=== PATIENT | male | born 1970 | race Two or more races ===

== ENCOUNTER 2017-07-12 18:48 | Emergency (ER) | payer MEDICAID, SELFPAY ==
[2017-07-12 18:54] VITALS: BP 143/76; PULSE 93; RESP 16; TEMP 36.9; O2SAT 95; BMI 38.5
--- NOTE | 2017-07-12 19:12 | HMH.EDSKAF ---
ED Disposition Clinical Impression: Abscess of abdominal wall Cellulitis Qualifiers: Site of cellulitis of trunk: abdominal wall Abscess of skin or subcutaneous tissue Qualifiers: Site of cutaneous abscess: other site Qualified Code(s): L02.818 - Cutaneous abscess of other sites Disposition: Home, Self-Care Condition on Discharge: Good Instructions: Cellulitis, Boil, DI for Skin Abscess Additional Instructions: Epsom salt and warm water soaks ten 20 minutes at a time every few hours while awake. Rx is for Keflex for Bactrim. Takes naproxen for pain. The surgeon of choice on list provided, early next week for further evaluation. Will likely need incision and drainage procedure next week. 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 The time I documented below is in addition to time spent performing reported procedures but includes the following listed in this critical care notation. Medical Decision Making Vital Signs: 07/12/17 18:54 Temperature 98.4 F Temperature Source Oral Pulse Rate [Right Brachial] 93 H Respiratory Rate 16 Blood Pressure [Right Arm] 143/76 Blood Pressure Mean [Right Arm] 98 Blood Pressure Source [Right Arm] Automatic Cuff Blood Pressure Position [Right Arm] Sitting 02 Sat by Pulse Oximetry 95 Oxygen Delivery Method Room Air - Axel Inquiry Pt receiving controlled substance: No Skin/Abscess/FB HPI - General Chief complaint: Skin/Abscess/Foreign Body Stated complaint: Boil right side of groin Time Seen by Provider: 07/12/17 19:18 Mode of Arrival: Ambulatory Source of Information: Patient, Significant Other Limitations: No Limitations Description of Symptoms (Recalled from ER Triage Doc. by RN): PT C/O BOIL IN GROIN AREA - History of Present Illness HPI narrative: Redness and Swelling to the right lower abdominal wall. Onset 4 days ago. No fever or vomiting. Relieving factors: none Exacerbating factors: none Associated symptoms: denies other symptoms Treatments prior to arrival: none - Related Data Previous Rx's Medication Instructions Recorded Naproxen [EC-Naprosyn] 500 mg PO BID PRN #20 tablet. 07/12/17 Sulfamethoxazole/Trimethoprim 1 each PO BID #20 tab 07/12/17 [Bactrim DS tablet] cephALEXin [Keflex 500mg Cap] 500 mg PO QID #40 cap 07/12/17 Allergies Allergy/AdvReac Type Severity Reaction Status Date / Time No Known Allergies Allergy Verified 07/12/17 19:26 [facility] History Medical History: Denies:: Cancer, Diabetes Mellitus Type 1, Diabetes Mellitus Type 2, MRSA Amputation: No Fractures: No - *Social History Smoking Status: Never smoker Alcohol Intake: never - Psychiatric History Expresses thoughts of harming self/others: None Suicide Plan Description: No Plan ROS Obtained: Yes All systems reviewed & no additional complaints Physical Exam - General General appearance: alert, in no apparent distress - Head Head exam: atraumatic, normocephalic, normal inspection - Neck Neck exam: Present: full ROM - Chest Chest inspection: Present: symmetric chest wall rise - Respiratory Respiratory exam: Absent: respiratory distress - Cardiovascular Cardiovascular exam: Present: other (No edema) - Abdominal Exam Abdominal exam: Present: soft, other (Cellulitis to abdominal wall, approximately 10 cm in diameter with no streaks. Centrally indurated consistent with early abscess. No fluctuance. No fo
--- NOTE | 2017-07-12 19:18 | ED_ITS ---
ED Disposition Clinical Impression: Abscess of abdominal wall Cellulitis Qualifiers: Site of cellulitis of trunk: abdominal wall Abscess of skin or subcutaneous tissue Qualifiers: Site of cutaneous abscess: other site Qualified Code(s): L02.818 - Cutaneous abscess of other sites Disposition: Home, Self-Care Condition on Discharge: Good Instructions: Cellulitis, Boil, DI for Skin Abscess Additional Instructions: Epsom salt and warm water soaks ten 20 minutes at a time every few hours while awake. Rx is for Keflex for Bactrim. Takes naproxen for pain. The surgeon of choice on list provided, early next week for further evaluation. Will likely need incision and drainage procedure next week. 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 The time I documented below is in addition to time spent performing reported procedures but includes the following listed in this critical care notation. Medical Decision Making Vital Signs: 07/12/17 18:54 Temperature 98.4 F Temperature Source Oral Pulse Rate [Right Brachial] 93 H Respiratory Rate 16 Blood Pressure [Right Arm] 143/76 Blood Pressure Mean [Right Arm] 98 Blood Pressure Source [Right Arm] Automatic Cuff Blood Pressure Position [Right Arm] Sitting 02 Sat by Pulse Oximetry 95 Oxygen Delivery Method Room Air - Axel Inquiry Pt receiving controlled substance: No Skin/Abscess/FB HPI - General Chief complaint: Skin/Abscess/Foreign Body Stated complaint: Boil right side of groin Time Seen by Provider: 07/12/17 19:18 Mode of Arrival: Ambulatory Source of Information: Patient, Significant Other Limitations: No Limitations Description of Symptoms (Recalled from ER Triage Doc. by RN): PT C/O BOIL IN GROIN AREA - History of Present Illness HPI narrative: Redness and Swelling to the right lower abdominal wall. Onset 4 days ago. No fever or vomiting. Relieving factors: none Exacerbating factors: none Associated symptoms: denies other symptoms Treatments prior to arrival: none - Related Data Previous Rx's Medication Instructions Recorded Naproxen [EC-Naprosyn] 500 mg PO BID PRN #20 tablet. 07/12/17 Sulfamethoxazole/Trimethoprim 1 each PO BID #20 tab 07/12/17 [Bactrim DS tablet] cephALEXin [Keflex 500mg Cap] 500 mg PO QID #40 cap 07/12/17 Allergies Allergy/AdvReac Type Severity Reaction Status Date / Time No Known Allergies Allergy Verified 07/12/17 19:26 [facility] History Medical History: Denies:: Cancer, Diabetes Mellitus Type 1, Diabetes Mellitus Type 2, MRSA Amputation: No Fractures: No - *Social History Smoking Status: Never smoker Alcohol Intake: never - Psychiatric History Expresses thoughts of harming self/others: None Suicide Plan Description: No Plan ROS Obtained: Yes All systems reviewe
== END 2017-07-12 20:07 | disposition home or self-care (01) ==
PROVIDERS: Emergency Provider Emergency Medicine
DX: L02.211 Cutaneous abscess of abdominal wall (principal)
CPT/HCPCS: 99282

== ENCOUNTER 2017-07-18 09:49 | Day surgery (SDC) | payer MEDICAID, SELFPAY ==
[2017-07-18] VITALS (15 sets, daily range): BP systolic 102–142; BP diastolic 57–90; PULSE 60–73; RESP 10–18; TEMP 36.1–43; O2SAT 92–97; BMI 38.5
[2017-07-18 09:56] LABS: Basophils # 0.1 K/mm3 (0-0.2); Basophils % 0.9 % (0.1-2.0); Eosinophils # 0.2 K/mm3 (0.0-0.4); Eosinophils % 2.6 % (0.1-12.0); Hematocrit 44.5 % (42.0-52.0); Hemoglobin 14.4 g/dL (14.1-18.0); Lymphocytes # 2.1 K/mm3 (0.7-4.5); Lymphocytes % 32.8 K/mm3 (10-50); Mean Corpuscular HGB Conc 32.5 g/dL (31.8-35.4); Mean Corpuscular Hemoglobin 29.7 pg (27.0-31.2); Mean Corpuscular Volume 91.6 fl (80-94); Mean Platelet Volume 8.6 fl (7.4-10.4); Monocytes # 0.3 K/mm3 (0.1-1.0); Monocytes % 5.3 % (1.7-9.3); Neutrophils # 3.7 K/mm3 (1.8-7.8); Neutrophils % 58.4 % (37.0-80.0); Platelet Count 362 K/mm3 (142-424); Red Blood Count 4.86 M/mm3 (4.60-6.20); White Blood Count 6.3 K/mm3 (4.8-10.8)
[2017-07-18 10:11] LABS: Anion Gap 12.6 mEq/L (5-15); Blood Urea Nitrogen 8 mg/dL (7-18); Carbon Dioxide 27 mmol/L (21.0-32.0); Chloride 103 mmol/L (98-107); Creatinine,Serum 0.67 mg/dL (0.70-1.30); Estimated Glomerular Filt Rate 127 ml/min (>60); GFR (African American) 153 ML/MIN (>60); Glucose 290 mg/dL (74-106); Potassium 4.6 mmoL/L (3.5-5.1); Sodium 138 mmol/L (136-145)
--- NOTE | 2017-07-18 10:41 | P.PN_ITS ---
[facility] Anesthesia Checklist - Patient Identification Patient Identification: Arm Band, Verbal (Name & ) - Structural Data Admitted From: Home Planned Operative Procedure/s: i and d right groin abcess Consent for Planned Operative Procedure(s) Verified: Yes Verified Documents: Surgical Consent - Chart Verification Results Verified: CBC, BMP - Additional verifications Patient : No Anesthesia Reactions: No Hx Blood Transfusions: No Blood Transfusion Reaction: No Cephalosporin Allergy: No Previous Colonoscopy: No - Cardiovascular Assessment Heart Sounds: S1 & S2 Pulse Strength: Strong Pulse Rhythm: Regular Peripheral Edema: No - Airway Assessment C-Spine Mobility Assessed: Yes TMJ Mobility Assessed: Yes Dentition: Dentures-good fit - Neurological Assessment Level of Consciousness: Awake, Alert, Appropriate Hx Seizures: No Numbness or tingling in extremities: No - Genitourinary Assessment Voided extrusion engineer to O.R.: Yes - Anesthesia Plan Anesthesia Risk discussed: Yes Anesthesia Plan: Verified ASA Class: I Anesthesia Type: General [facility] Anesthesia HX I have reviewed the patient's past medical history: Yes Medical History: Denies:: Cancer, Diabetes Mellitus Type 1, Diabetes Mellitus Type 2, MRSA, Seizures Other Surgeries: Yes: No Previous Surgery Amputation: No Fractures: No *Family Hx:: No significant family history
--- NOTE | 2017-07-18 11:29 | HMH.OPNOTE ---
Date of procedure: 07/18/17 Pre-op Diagnosis:: Right groin abscess Post-op diagnosis:: same Procedure performed:: Incision and drainage/debridement of right groin abscess Surgeon:: Lázaro Bellamy MD PIPE BUFFER:: Nick Gallegos Anesthesia: MAC Estimated blood loss (mL): 20 Operative findings:: patchy necrosis Operative note:: After informed consent was obtained, the patient was taken to the operating room and placed in the supine position. General anesthesia was induced and his right groin was prepped and draped in a sterile fashion. An incision was made around the margin of the wound and patchy necrotic tissue was excised. Fluid was obtained for Gram stain and culture. The wound was fully opened and evacuated. After irrigation, moistened Kerlix was packed in the wound. Infiltration of the Kerlix with 1% lidocaine was completed and dressings were applied. Patient was transferred to recovery in stable condition. Pathology: none sent Condition: stable Disposition: PACU Complications:: no immediate
--- NOTE | 2017-07-18 11:32 | P.OP_ITS ---
Date of procedure: 07/18/17 Pre-op Diagnosis:: Right groin abscess Post-op diagnosis:: same Procedure performed:: Incision and drainage/debridement of right groin abscess Surgeon:: Lázaro Bellamy MD SUPERVISOR [employer] EDUCATION:: Nick Gallegos Anesthesia: MAC Estimated blood loss (mL): 20 Operative findings:: patchy necrosis Operative note:: After informed consent was obtained, the patient was taken to the operating room and placed in the supine position. General anesthesia was induced and his right groin was prepped and draped in a sterile fashion. An incision was made around the margin of the wound and patchy necrotic tissue was excised. Fluid was obtained for Gram stain and culture. The wound was fully opened and evacuated. After irrigation, moistened Kerlix was packed in the wound. Infiltration of the Kerlix with 1% lidocaine was completed and dressings were applied. Patient was transferred to recovery in stable condition. Pathology: none sent Condition: stable Disposition: PACU Complications:: no immediate
--- NOTE | 2017-07-18 11:36 | HMH.ANESI ---
[facility] Anesthesia Record Part I Intake, IV Amount: 800 Estimated blood loss (mL): 25 Urine output (mL): 0 Blood Pressure: 132/85 SaO2: 95 Pulse Rate: 67 Respiratory Rate: 10 Temperature: 97.2 F Patient is:: Drowsy, Stable Stable to PACU at:: 11:30
--- NOTE | 2017-07-18 11:36 | HMH.ANESII ---
[facility] Anesthesia Record Part II Discharge Time: 12:00 Destination: [facility] PACU nurse assessment reviewed?: Yes Patient Condition:: Good Anesthesia Complications:: None
--- NOTE | 2017-07-18 11:37 | P.PN_ITS ---
[facility] Anesthesia Record Part II Discharge Time: 12:00 Destination: [facility] PACU nurse assessment reviewed?: Yes Patient Condition:: Good Anesthesia Complications:: None
== END 2017-07-18 13:15 | disposition home or self-care (01) ==
PROVIDERS: Family Provider Family Medicine; Visit Provider Surgery
PROC: (CPT 10061; principal; 2017-07-18 10:30)
DX: L02.214 Cutaneous abscess of groin (principal)
CPT/HCPCS: 10061; 36415; 80048; 85025; 87070; 87077; 87186; 87205; 93005; 96374; J2405

== ENCOUNTER 2017-07-22 15:17 | Emergency (ER) | payer MEDICAID, SELFPAY ==
[2017-07-22 15:23] VITALS: BP 105/71; PULSE 79; RESP 18; TEMP 36.6; O2SAT 94; BMI 31.9
--- NOTE | 2017-07-22 15:39 | HMH.EDWNDL ---
ED Disposition Clinical Impression: Post-op bleeding Qualifiers: Surgical complication system/body Area: subcutaneous tissue Procedure type: non-dermatologic Qualified Code(s): L76.22 - Postprocedural hemorrhage of skin and subcutaneous tissue following other procedure Disposition: Home, Self-Care Condition on Discharge: Good Instructions: DI for Post-Surgical Bleeding Additional Instructions: see pcp for follow up Referrals: Provider,Referral, MD [Primary Care Provider] - - Critical Care Critical Care Time: No Attestation: On 07/22/17, the high probability of a clinically significant, sudden or life threatening deterioration of the following system(s) required my full and direct attention, intervention and personal management. The time I documented below is in addition to time spent performing reported procedures but includes the following listed in this critical care notation. Medical Decision Making - Medical Records Medical records reviewed: Yes: I reviewed the patient's medical records. Vital Signs: 07/22/17 15:23 Temperature 97.9 F Temperature Source Oral Pulse Rate [Right Ulnar] 79 Respiratory Rate 18 Blood Pressure [Left Arm] 105/71 Blood Pressure Mean [Left Arm] 82 Blood Pressure Source [Left Arm] Automatic Cuff Blood Pressure Position [Left Arm] Sitting 02 Sat by Pulse Oximetry 94 L Oxygen Delivery Method Room Air Orders (Tests/Meds): ORDERS Category Date Time Status CBC w/Auto Diff [Complete Blood Count Auto Diff] Stat Lab 07/22/17 16:24 Ordered - Physician Consults Physician Consulted: allran Time: 16:36 Reason -: Pt condition - Axel Inquiry Pt receiving controlled substance: No Wound/Laceration HPI - General Chief Complaint: Wound/Laceration Stated Complaint: BLEEDING Time Seen by Provider: 07/22/17 15:39 Mode of Arrival: Ambulatory Source of Information: Patient, Spouse, Medical Record Limitations: No Limitations Description of Symptoms (Recalled from ER Triage Doc. by RN): bleeding from i/d from last week - History of Present Illness Onset (ago): day(s) Location: other (groin) - Related Data Home Medications Medication Instructions Recorded Confirmed Naproxen Sodium [Naproxen ER 500mg 500 mg PO DAILY 07/18/17 07/18/17 Tab] Sulfamethoxazole/Trimethoprim 1 tab PO BID 07/18/17 07/18/17 [Sulfamethoxazole-Tmp Ds Tablet] cephALEXin [cephALEXin 500mg 500 mg PO Q6H 07/18/17 07/18/17 capsule] Allergies Allergy/AdvReac Type Severity Reaction Status Date / Time No Known Allergies Allergy Verified 07/17/17 13:55 [facility] History I have reviewed the patient's past medical history: Yes Medical History: Denies:: Cancer, Diabetes Mellitus Type 1, Diabetes Mellitus Type 2, MRSA, Seizures Other Medical History: Denies: Blood Transfusion Reaction Other Surgeries: Yes: No Previous Surgery Amputation: No Fractures: No - *Social History Smoking Status: Never smoker Alcohol Intake: never Alcohol Intake Frequency:: other Substance Use Type: denies use Occupational Status: unemployed Housing: house Household Members: spouse *Family Hx:: No significant family history ROS Obtained: Yes All systems reviewed & no additional complaints - Constitutional Constitutional: Denies fever(s) - Eyes Eyes: Denies change in vision - ENT Ears, Nose, Mouth, and Throat: Denies sore throat - Cardiovascular Cardiovascular: Denies chest pain at rest - Respiratory Respiratory: No chest congestion - Gastrointestinal Gastrointestingal: Denies: nausea, vomiting - Genitourinary Male Genitourinary: Denies hematuria - Musculoskeletal Musculoskeletal: Denies joint pain, Denies joint stiffness - Integumentary/Breasts Skin/Breast: Reports other (bleeding from rt groain surg site ) - Neurologic Neurologic: Denies seizure-like activity Physical Exam - General General appearance: alert, in no apparent distress - Head Head exam: normocephalic -
--- NOTE | 2017-07-22 16:25 | P.CONS_ITS ---
*Admission Date: 07/22/17 *History of present illness: Asked by ER physician to evaluate leading surgical site. Patient undergone incision and drainage of abscess by Dr. Bellamy 4 days ago. He has been undergoing wet to dry dressings twice daily. This morning he had significant bleeding from the wound and presented to the emergency department. Review of Systems - Review of Systems Review of systems:: unable to obtain [facility] History Medical History: Denies:: Cancer, Diabetes Mellitus Type 1, Diabetes Mellitus Type 2, MRSA, Seizures Other Medical History: Denies: Blood Transfusion Reaction Other Surgeries: Yes: No Previous Surgery Amputation: No Fractures: No - *Social History Smoking Status: Never smoker Alcohol Intake: never Alcohol Intake Frequency:: other Substance Use Type: denies use Occupational Status: unemployed Housing: house Household Members: spouse - Psychiatric History Expresses thoughts of harming self/others: None Suicide Plan Description: No Plan *Family Hx:: No significant family history Meds Home Medications Medication Instructions Recorded Confirmed Type Naproxen Sodium [Naproxen ER 500mg 500 mg PO DAILY 07/18/17 07/18/17 History Tab] Sulfamethoxazole/Trimethoprim 1 tab PO BID 07/18/17 07/18/17 History [Sulfamethoxazole-Tmp Ds Tablet] cephALEXin [cephALEXin 500mg 500 mg PO Q6H 07/18/17 07/18/17 History capsule] Allergies Allergy/AdvReac Type Severity Reaction Status Date / Time No Known Allergies Allergy Verified 07/17/17 13:55 Exam Vital signs and Labs for Last 24 Hours: Temp Pulse Resp BP Pulse Ox 97.9 F 79 18 105/71 94 L 07/22/17 15:23 07/22/17 15:23 07/22/17 15:23 07/22/17 15:23 07/22/17 15:23 I & O for Last 24 hours: Intake & Output 07/20/17 07/21/17 07/22/17 07/23/17 11:59 11:59 11:59 11:59 Weight 210 lb - *Routine Exam Comments: In the right groin area there is a clean wound without evidence of any necrosis or erythema. However there is some blood clot present with some relatively active bleeding. Assessment and Plan - Assessment and plan all Dx Assessment and Plan for all problems:: I evacuated the blood clot and cleansed the wound. I held pressure for quite a few minutes with sterile gauze and cotton tipped applicator. This resulted in good hemostasis. Wound was then packed with Surgicel followed by dry sterile gauze. I will have the patient follow-up with Dr. Bellamy tomorrow morning.
[2017-07-22 16:36] LABS: Basophils # 0.1 K/mm3 (0-0.2); Basophils % 0.4 % (0.1-2.0); Eosinophils # 0.2 K/mm3 (0.0-0.4); Eosinophils % 1.5 % (0.1-12.0); Hematocrit 38.7 % (42.0-52.0); Hemoglobin 12.7 g/dL (14.1-18.0); Lymphocytes # 1.5 K/mm3 (0.7-4.5); Lymphocytes % 11.9 K/mm3 (10-50); Mean Corpuscular HGB Conc 32.8 g/dL (31.8-35.4); Mean Corpuscular Hemoglobin 30.1 pg (27.0-31.2); Mean Corpuscular Volume 91.8 fl (80-94); Mean Platelet Volume 8.5 fl (7.4-10.4); Monocytes # 0.5 K/mm3 (0.1-1.0); Monocytes % 4.1 % (1.7-9.3); Neutrophils # 10.4 K/mm3 (1.8-7.8); Neutrophils % 82.1 % (37.0-80.0); Platelet Count 364 K/mm3 (142-424); Red Blood Count 4.22 M/mm3 (4.60-6.20); Red Cell Distribution Width 13.1 % (11.5-17.5); White Blood Count 12.7 K/mm3 (4.8-10.8)
[2017-07-22 17:02] VITALS: BP 122/65; PULSE 74; RESP 18; O2SAT 97
== END 2017-07-22 17:24 | disposition home or self-care (01) ==
PROVIDERS: Emergency Provider Emergency Medicine; Family Provider Family Medicine
DX: L76.22 Postprocedural hemorrhage of skin and subcutaneous tissue following other procedure (principal); Y84.8 Other medical procedures as the cause of abnormal reaction of the patient, or of later complication, without mention of misadventure at the time of the procedure; Y82.8 Other medical devices associated with adverse incidents; Z79.899 Other long term (current) drug therapy
CPT/HCPCS: 85025; 99283

== ENCOUNTER → 2017-07-23 09:51 | Outpatient (CLI) | payer MEDICAID, SELFPAY ==
[2017-07-23 11:10] LABS: Hematocrit 38.4 % (42.0-52.0); Hemoglobin 12.5 g/dL (14.1-18.0)
== END ==
PROVIDERS: Family Provider Family Medicine; Visit Provider Surgery
DX: L02.214 Cutaneous abscess of groin (principal)
CPT/HCPCS: 36415; 85014; 85018

== ENCOUNTER → 2018-02-10 07:04 | Outpatient (CLI) | payer MEDICAID, SELFPAY ==
[2018-02-10 14:25] LABS: Basophils % 0.5 % (0.1-2.0); Eosinophils # 0.2 K/mm3 (0.0-0.4); Eosinophils % 2.3 % (0.1-12.0); Hematocrit 45.6 % (42.0-52.0); Hemoglobin 15.3 g/dL (14.1-18.0); Lymphocytes % 39.2 K/mm3 (10-50); Mean Corpuscular HGB Conc 33.6 g/dL (31.8-35.4); Mean Corpuscular Volume 89.3 fl (80-94); Mean Platelet Volume 10.2 fl (7.4-10.4); Monocytes # 0.4 K/mm3 (0.1-1.0); Monocytes % 5.3 % (1.7-9.3); Neutrophils % 52.7 % (37.0-80.0); Platelet Count 346 K/mm3 (142-424); Red Cell Distribution Width 13.9 % (11.5-17.5); White Blood Count 7.5 K/mm3 (4.8-10.8)
[2018-02-10 15:12] LABS: Alanine Aminotransferase 96 U/L (12-78); Albumin Level 3.7 gm/dL (3.4-5.0); Albumin/Globulin Ratio 1.1 (1.1-1.8); Alkaline Phosphatase 83 U/L (46-116); Anion Gap 14.2 mEq/L (5-15); Aspartate Amino Transferase 32 U/L (15-37); Bilirubin,Total 0.4 mg/dL (0.2-1.0); Blood Urea Nitrogen 16 mg/dL (7-18); Carbon Dioxide 27 mmol/L (21.0-32.0); Chloride 101 mmol/L (98-107); Cholesterol 199 mg/dL (140-200); Creatinine,Serum 0.76 mg/dL (0.70-1.30); Estimated Glomerular Filt Rate 109 ml/min (>60); GFR (African American) 132 ML/MIN (>60); Globulin 3.4 gm/dl (1.3-3.2); Glucose 313 mg/dL (74-106); HDL Cholesterol 33 mg/dL (27-67); LDL Cholesterol 120 mg/dL (0-130); Potassium 4.2 mmoL/L (3.5-5.1); Sodium 138 mmol/L (136-145); Thyroid Stimulating Hormone 2.45 uIU/ml (0.358-3.740); Total Protein,Serum 7.1 gm/dL (6.4-8.2); Triglycerides 232 mg/dL (30-200); VLDL Cholesterol 46 mg/dL (0-40)
[2018-02-11 06:15] LABS: Hep A Ab, IgM Negative (Negative); Hepatitis B Core Antibody IgM Negative (Negative); Hepatitis B Surface Antigen Negative (Negative)
[2018-02-11 08:32] LABS: Hepatitis C Antibody <0.1 s/co ratio (0.0-0.9)
== END ==
PROVIDERS: Visit Provider Nurse Practitioner Family
DX: B00.9 Herpesviral infection, unspecified (principal); E66.9 Obesity, unspecified; Z20.2 Contact with and (suspected) exposure to infections with a predominantly sexual mode of transmission
CPT/HCPCS: 36415; 80053; 80061; 80074; 84436; 84443; 85025

== ENCOUNTER → 2018-03-12 07:18 | Outpatient (CLI) | payer MEDICAID, SELFPAY ==
[2018-03-12 14:02] LABS: Hemoglobin A1C 11.7 % (0.0-7.0)
== END ==
PROVIDERS: PCP Nurse Practitioner Family; Visit Provider Nurse Practitioner Family
DX: R73.9 Hyperglycemia, unspecified (principal)
CPT/HCPCS: 36415; 83036